=== PATIENT | female | born 1995 | race Caucasian/White ===

== ENCOUNTER 2016-07-11 20:10 | Emergency (ER) | payer OTHER ==
[~2016-07-11] VITALS: Ht 165.1 cm; Wt 90.9 kg
[2016-07-11 20:21] VITALS: BP 114/85; PULSE 100; TEMP 97.1
[2016-07-11 21:10] LABS: ANION GAP 16 mmol/L (7-16); BLOOD UREA NITROGEN 13 mg/dL (7-17); CALCIUM 10.4 mg/dL (8.4-10.2); CARBON DIOXIDE 25 mmol/L (22-30); CHLORIDE 101 mmol/L (98-107); CREATININE, serum 0.79 mg/dL (0.52-1.25); GLUCOSE 109 mg/dL (74-106); POTASSIUM 3.6 mmol/L (3.4-5.0); SODIUM 142 mmol/L (137-145)
[2016-07-11 21:19] LABS: B-TYPE NATRIURETIC PEPTIDE 33 pg/mL (0-125)
[2016-07-11 21:23] LABS: TROPONIN-I < 0.012 ng/mL (0.000-0.034)
== END 2016-07-11 22:18 | disposition home or self-care (01) ==
LOC: COL.ER 20:10
PROVIDERS: Emergency Medicine
DX: J06.9 Acute upper respiratory infection, unspecified (principal)